=== PATIENT | female | born 1965 | race Caucasian/White ===

== ENCOUNTER 2017-11-26 14:01 | Emergency (ER) | payer OTHER ==
[~2017-11-26] VITALS: Ht 167.6 cm; Wt 69.8 kg
[2017-11-26] MEDS ORDERED: KEPPRA500 MG PO (14:48)
[2017-11-26] MEDS ORDERED: LEVO-T150 MCG PO (14:48)
[2017-11-26] MEDS ORDERED: UNITHROID150 MCG (14:48)
[2017-11-26] MEDS ORDERED: ZYPREXA5 MG PO (14:49)
[2017-11-26] MEDS ORDERED: TEGRETOL XR400 MG PO (14:49)
[2017-11-26] MEDS ORDERED: MINIPRESS1 MG PO (14:49)
[2017-11-26] MEDS ORDERED: GEODON20 MG PO (14:50)
[2017-11-26] MEDS ORDERED: CYCLOBENZAPRINE5 MG PO (16:48)
[2017-11-26] MEDS ORDERED: IBUPROFEN600 MG PO (16:48)
== END 2017-11-26 16:58 | disposition home or self-care (01) ==
LOC: ED 14:01
DX: R10.12 Left upper quadrant pain (principal); Z88.2 Allergy status to sulfonamides; Z88.8 Allergy status to other drugs, medicaments and biological substances; Z79.899 Other long term (current) drug therapy
CPT/HCPCS: 74177; 80053; 81001; 83690; 85025; 85610; 96361; 96374; 96375; 99284; J1885; J2270; J2405; J7030; Q9967

== ENCOUNTER 2017-11-29 14:46 | Emergency (ER) | payer OTHER ==
[~2017-11-29] VITALS: Ht 167.6 cm; Wt 71.7 kg
[~2017-11-29 14:46] MED LIST: CYCLOBENZAPRINE5 MG PO; GEODON20 MG PO; IBUPROFEN600 MG PO; KEPPRA500 MG PO; LEVO-T150 MCG PO; MINIPRESS1 MG PO; TEGRETOL XR400 MG PO; UNITHROID150 MCG; ZYPREXA5 MG PO
[2017-11-29] MEDS ORDERED: FLAGYL500 MG PO (18:48)
[2017-11-29] MEDS ORDERED: ZOFRAN ODT4 MG PO (18:49)
== END 2017-11-29 19:15 | disposition home or self-care (01) ==
LOC: ED 14:46
DX: R10.9 Unspecified abdominal pain (principal); F15.10 Other stimulant abuse, uncomplicated; G40.909 Epilepsy, unspecified, not intractable, without status epilepticus; F17.200 Nicotine dependence, unspecified, uncomplicated; Z88.2 Allergy status to sulfonamides; Z88.8 Allergy status to other drugs, medicaments and biological substances; Z79.899 Other long term (current) drug therapy
CPT/HCPCS: 74177; 80053; 81001; 83605; 85025; 96360; 96361; 96372; 99284; J1885; J7030; Q9967

== ENCOUNTER 2017-12-03 16:33 | Emergency (ER) | payer OTHER ==
[~2017-12-03] VITALS: Ht 167.6 cm; Wt 71.7 kg
[~2017-12-03 16:33] MED LIST changes: +FLAGYL500 MG PO; +ZOFRAN ODT4 MG PO
[2017-12-03] MEDS ORDERED: AMBIEN10 MG PO (16:52)
[2017-12-03] MEDS ORDERED: KETOROLAC TROME10 MG PO (18:36)
== END 2017-12-03 18:58 | disposition home or self-care (01) ==
LOC: ED 16:33
DX: K29.70 Gastritis, unspecified, without bleeding (principal); Z76.5 Malingerer [conscious simulation]; G40.909 Epilepsy, unspecified, not intractable, without status epilepticus; F17.200 Nicotine dependence, unspecified, uncomplicated; Z88.2 Allergy status to sulfonamides; Z88.8 Allergy status to other drugs, medicaments and biological substances; Z79.899 Other long term (current) drug therapy
CPT/HCPCS: 73610; 74018; 80053; 81001; 85025; 96374; 96375; 99283; J2405; J7030

== ENCOUNTER 2017-12-04 13:19 | Emergency (ER) | payer OTHER ==
[~2017-12-04] VITALS: Ht 167.6 cm; Wt 71.7 kg
[~2017-12-04 13:19] MED LIST changes: +AMBIEN10 MG PO; +KETOROLAC TROME10 MG PO
== END 2017-12-04 16:24 | disposition home or self-care (01) ==
LOC: ED 13:19
DX: R45.851 Suicidal ideations (principal); Z00.8 Encounter for other general examination; F17.200 Nicotine dependence, unspecified, uncomplicated; Z88.2 Allergy status to sulfonamides; Z88.8 Allergy status to other drugs, medicaments and biological substances; Z79.899 Other long term (current) drug therapy
CPT/HCPCS: 36415; 80053; 80176; 81001; 84443; 84703; 85025; 99283; G0480

== ENCOUNTER 2017-12-12 11:29 | Emergency (ER) | payer OTHER ==
[~2017-12-12] VITALS: Ht 167.6 cm; Wt 83.5 kg
[2017-12-12] MEDS ORDERED: OMEPRAZOLE20 MG PO (13:30)
[2017-12-12] MEDS ORDERED: MIRALAX17 GM PO (13:30)
[2017-12-12] MEDS ORDERED: CITRATE OF MAG296 ML PO (13:30)
== END 2017-12-12 13:45 | disposition home or self-care (01) ==
LOC: ED 11:29
DX: K59.00 Constipation, unspecified (principal); R51 Headache; G40.909 Epilepsy, unspecified, not intractable, without status epilepticus; F17.200 Nicotine dependence, unspecified, uncomplicated; Z88.2 Allergy status to sulfonamides; Z88.8 Allergy status to other drugs, medicaments and biological substances; Z79.899 Other long term (current) drug therapy
CPT/HCPCS: 36415; 74022; 80053; 83690; 85025; 96372; 99283; J1885

== ENCOUNTER 2018-03-01 15:01 | Emergency (ER) | payer OTHER ==
[~2018-03-01] VITALS: Ht 167.6 cm; Wt 83.5 kg
[~2018-03-01 15:01] MED LIST changes: +CITRATE OF MAG296 ML PO; +MIRALAX17 GM PO; +OMEPRAZOLE20 MG PO
--- OUTSIDE RECORDS SUMMARY | 2018-03-01 15:06 | XMS ---
PreManage Notification: DAVE NOVAK Security Professor Of Criminal Justice Events No recent Security Events currently on file CRITERIA MET - 6 ED Visits in 6 Months CARE PROVIDERS There are no care providers on record at this time. Barber has no Care Guidelines for this patient. Care History Medical/Surgical 12/04/2017 [facility] - Patient was previously at the [facility] and then transitioned to a [facility]. - Any contact with the patient is prohibited and [facility] stated they have case management involved with patient through the [facility]. - USE EXTREME CAUTION IN GIVING NARCOTICS TO THIS PATIENT. - Avoid Discharge Narcotic prescriptions if at all possible. Please use clinical judgement. This patient has had 5 or more Emergency Department visits in the last 12 months.\T\nbsp; Patient requires education on the scope and purpose of the ED as an acute care provider not a Primary Care Provider and should not be utilized for chronic conditions.\T\nbsp; If patient returns to ED please contact Community Health WorkerDisha at [phone]. These are guidelines and the provider should exercise clinical judgment when providing care. E.D. VISIT COUNT (12 MO.) 6 [facility] TOTAL 6 NOTE: Visits indicate total known visits. ED/UCC VISIT TRACKING (12 MO.) 03/01/2018 15:02 [facility] [place] TYPE: Emergency COMPLAINT: - HEAD PAIN 12/12/2017 11:30 [facility] [place] TYPE: Emergency COMPLAINT: - ABD PAIN/HEADACHE DIAGNOSES: - Nicotine dependence, unspecified, uncomplicated - Constipation, unspecified - Epilepsy, unspecified, not intractable, without status epilepticus - Headache - Other care home (current) drug therapy - Allergy status to other drugs, medicaments and biological substances status - Allergy status to sulfonamides status 12/04/2017 13:19 [facility] [place] TYPE: Emergency COMPLAINT: - MEDICAL CLEARANCE DIAGNOSES: - Allergy status to other drugs, medicaments and biological substances status - Other care home (current) drug therapy - Allergy status to sulfonamides status - Encounter for other general examination - Suicidal ideations - Nicotine dependence, unspecified, uncomplicated - Suicidal ideations 12/03/2017 16:34 [facility] [place] TYPE: Emergency COMPLAINT: - LEFT ANKLE PAIN, INJURY/STOMACH PAIN DIAGNOSES: - Gastritis, unspecified, without bleeding - Left upper quadrant pain - Epilepsy, unspecified, not intractable, without status epilepticus - Allergy status to sulfonamides status - Other care home (current) drug therapy - Malingerer [conscious simulation] - Allergy status to other drugs, medicaments and biological substances status - Nicotine dependence, unspecified, uncomplicated 11/29/2017 14:46 [facility] [place] TYPE: Emergency COMPLAINT: - ABD PAIN3 DIAGNOSES: - Allergy status to other drugs, medicaments and biological substances status - Nicotine dependence, unspecified, uncomplicated - Other stimulant abuse, uncomplicated - Unspecified abdominal pain - Other care home (current) drug therapy - Allergy status to sulfonamides status - Epilepsy, unspecified, not intractable, without status epilepticus 11/26/2017 14:02 [facility] [place] TYPE: Emergency COMPLAINT: - LOWER BACK PAIN DIAGNOSES: - Allergy status to other drugs, medicaments and biological substances status - Left upper quadrant pain - Allergy status to sulfonamides status - Other care home (current) drug therapy INPATIENT VISIT TRACKING (12 MO.) No inpatient visits to display in this time frame [id number]
[2018-03-01] MEDS ORDERED: FLUOXETINE HCL40 MG PO (16:37)
[2018-03-01] MEDS ORDERED: GABAPENTIN300 MG PO (16:39)
[2018-03-01] MEDS ORDERED: CLONAZEPAM1 MG PO (16:40)
[2018-03-01] MEDS ORDERED: AMITRIPTYLINE H50 MG PO (16:41)
--- NOTE | 2018-03-01 21:01 | EKG ---
[facility] [address] [facility] [address] [place] [address] Signed Normal sinus rhythm T wave abnormality, consider lateral ischemia Abnormal ECG No previous ECGs available Confirmed by BLAS PALAFOX MD ([id number]) on 03/01/2018 9:01:15 PM Electronically Signed By: BLAS PALAFOX MD 03/01/182100 PATIENT NAME: MARLENI ORDONEZDAVE L Electrocardiogram DATE OF : 65 PHYSICIAN: BLAS PALAFOX MD REPORT #: [id number] REPORT IS CONFIDENTIAL AND NOT TO BE RELEASED WITHOUT AUTHORIZATION
== END 2018-03-01 20:26 | disposition home or self-care (01) ==
LOC: ED 15:01
PROC: 0T9B70Z Drainage of Bladder with Drainage Device, Via Natural or Artificial Opening (ICD-10-PCS; principal; 2018-03-01)
DX: F15.10 Other stimulant abuse, uncomplicated (principal); R41.0 Disorientation, unspecified; G40.909 Epilepsy, unspecified, not intractable, without status epilepticus; F17.200 Nicotine dependence, unspecified, uncomplicated; Z88.2 Allergy status to sulfonamides; Z88.8 Allergy status to other drugs, medicaments and biological substances; Z79.899 Other long term (current) drug therapy
CPT/HCPCS: 51701; 70450; 80053; 81001; 84484; 85025; 87077; 87088; 87186; 93005; 93010; 99285; G0480

== ENCOUNTER 2018-04-13 14:22 | Emergency (ER) | payer OTHER ==
[~2018-04-13] VITALS: Ht 167.6 cm; Wt 83.5 kg
[~2018-04-13 14:22] MED LIST changes: +AMITRIPTYLINE H50 MG PO; +CLONAZEPAM1 MG PO; +FLUOXETINE HCL40 MG PO; +GABAPENTIN300 MG PO
[2018-04-13] MEDS ORDERED: CARBAMAZEPINE200 MG PO (18:27)
[2018-04-13] MEDS ORDERED: KEFLEX500 MG PO (18:33)
[2018-04-13] MEDS ORDERED: PERCOCET 5-3251 EACH PO (18:39)
[2018-04-13] MEDS ORDERED: PROPRANOLOL HCL10 MG PO (18:40)
[2018-04-13] MEDS ORDERED: VENTOLIN HFA18 GM INH (18:41)
[2018-04-13] MEDS ORDERED: PRAZOSIN HCL2 MG PO (18:41)
[2018-04-13] MEDS ORDERED: FLOVENT DISKU250 MCG INH (18:44)
--- OUTSIDE RECORDS SUMMARY | 2018-04-14 07:01 | XMS ---
PreManage Notification: DAVE NOVAK Security Job Service Consultant Events No recent Security Events currently on file CRITERIA MET - 6 ED Visits in 6 Months CARE PROVIDERS ELISE VERNON Physician Director Of Public Safety 03/02/2018-Current PHONE: [phone] Barber has no Care Guidelines for this patient. Care History Medical/Surgical 12/04/2017 [facility] - PATIENT IS NOW WORKING WITH [facility] CASE MANAGEMENT- PLEASE CONTACT TYLER AT [facility] [phone]. - PATIENT IS CURRENTLY RESIDING IN [place] AT THE [facility] UNTIL HOUSING CAN BE FOUND FOR HER. - Patient was previously at the [facility] and then transitioned to a [facility]. - Any contact with the patient is prohibited and [facility] stated they have case management involved with patient through the jail. - USE EXTREME CAUTION IN GIVING NARCOTICS [...] ED please contact Community Health WorkerDisha at [phone]. These are guidelines and the provider should exercise clinical judgment when providing care. E.D. VISIT COUNT (12 MO.) [address] [facility] TOTAL 7 NOTE: Visits indicate total known visits. ED/UCC VISIT TRACKING (12 MO.) 04/13/2018 14:24 [facility] [place] TYPE: Emergency COMPLAINT: - MEDICAL CLEARANCE 03/01/2018 15:02 [facility] [place] TYPE: Emergency COMPLAINT: - HEAD PAIN DIAGNOSES: - Allergy status to sulfonamides status - Allergy status to other drugs, medicaments and biological substances status - Nicotine dependence, unspecified, uncomplicated - Disorientation, unspecified - Major depressive disorder, single episode, unspecified - Other terminal operator (current) drug therapy - Other stimulant abuse, uncomplicated - Epilepsy, unspecified, not intractable, without status epilepticus 12/12/2017 11:30 [facility] [place] TYPE: Emergency COMPLAINT: - ABD PAIN/HEADACHE DIAGNOSES: - Nicotine dependence, unspecified, uncomplicated - Constipation, unspecified - Epilepsy, unspecified, not intractable, without status epilepticus - Headache - Other skilled nursing (current) drug therapy - Allergy status to other drugs, medicaments and biological substances status - Allergy status to sulfonamides status 12/04/2017 13:19 [facility] [place] TYPE: Emergency COMPLAINT: - MEDICAL CLEARANCE DIAGNOSES: - Allergy status to other drugs, medicaments and biological substances status - Other terminal operator (current) drug therapy - Allergy status to sulfonamides status - Encounter for other general examination - Suicidal ideations - Nicotine dependence, unspecified, uncomplicated - Suicidal ideations 12/03/2017 16:[facility] COMPLAINT: - LEFT ANKLE PAIN, INJURY/STOMACH PAIN DIAGNOSES: - Gastritis, unspecified, without bleeding - Left upper quadrant pain - Epilepsy, unspecified, not intractable, without status epilepticus - Allergy status to sulfonamides status - Other terminal operator (current) drug therapy - Malingerer [conscious simulation] - Allergy status to other drugs, medicaments and biological substances status - Nicotine dependence, unspecified, uncomplicated 11/29/2017 14:46 [facility] [place] [facility] COMPLAINT: - ABD PAIN3 DIAGNOSES: - Allergy status to other drugs, medicaments and biological substances status - Nicotine dependence, unspecified, uncomplicated - Other stimulant abuse, uncomplicated - Unspecified abdominal pain - Other skilled nursing (current) drug therapy - Allergy status to sulfonamides status - Epilepsy, unspecified, not intractable, without status epilepticus 11/26/2017 14:02 [facility] [place] [facility]: [facility] COMPLAINT: - LOWER BACK PAIN DIAGNOSES: - Allergy status to other drugs, medicaments and biological substances status - Left upper quadrant pain - Allergy status to sulfonamides status - Other skilled nursing (current) drug therapy INPATIENT VISIT TRACKING (12 MO.) No inpatient visits to display in this time frame [id number]
== END 2018-04-14 15:12 ==
LOC: ED 14:22
DX: F32.9 Major depressive disorder, single episode, unspecified (principal); F15.10 Other stimulant abuse, uncomplicated; R45.851 Suicidal ideations; F17.200 Nicotine dependence, unspecified, uncomplicated; Z88.2 Allergy status to sulfonamides; Z88.8 Allergy status to other drugs, medicaments and biological substances; Z79.899 Other long term (current) drug therapy
CPT/HCPCS: 36415; 70450; 80053; 81001; 85025; 99285; G0480

== ENCOUNTER 2018-08-01 11:10 | Emergency (ER) | payer OTHER ==
[~2018-08-01] VITALS: Ht 167.6 cm; Wt 83.5 kg
[~2018-08-01 11:10] MED LIST changes: +CARBAMAZEPINE200 MG PO; +FLOVENT DISKU250 MCG INH; +KEFLEX500 MG PO; +PERCOCET 5-3251 EACH PO; +PRAZOSIN HCL2 MG PO; +PROPRANOLOL HCL10 MG PO; +VENTOLIN HFA18 GM INH
--- OUTSIDE RECORDS SUMMARY | 2018-08-01 11:12 | XMS ---
PreManage Notification: DAVE NOVAK Security Construction Trades Contractor Events No recent Security Events currently on file CRITERIA MET - [facility] - Has Care Guidelines CARE PROVIDERS ELISE VERNON Physician Networking Engineer 03/02/2018-Current PHONE: [phone] Barber has no Care Guidelines for this patient. Care History Medical/Surgical 12/04/2017 [facility] - PATIENT IS NOW WORKING WITH [facility] CASE MANAGEMENT- PLEASE CONTACT TYLER AT [facility] [phone]. - PATIENT IS CURRENTLY RESIDING IN [place] AT THE [facility] UNTIL HOUSING CAN BE FOUND FOR HER. - [facility]. - Any contact with the patient is prohibited and [facility] the [facility]. - USE EXTREME CAUTION IN GIVING NARCOTICS [...] ED please contact Community Health WorkerDisha at [phone]. These are guidelines and the provider should exercise clinical judgment when providing care. E.D. VISIT COUNT (12 MO.) [address] [facility] TOTAL 8 NOTE: Visits indicate total known visits. ED/UCC VISIT TRACKING (12 MO.) 08/01/2018 11:10 [facility] [place] TYPE: Emergency COMPLAINT: - DIZZINESS/WEAKNESS 04/13/2018 14:24 [facility] [place] TYPE: Emergency COMPLAINT: - MEDICAL CLEARANCE DIAGNOSES: - Nicotine dependence, unspecified, uncomplicated - Allergy status to other drugs, medicaments and biological substances status - Allergy status to sulfonamides status - Other stimulant abuse, uncomplicated - Major depressive disorder, single episode, unspecified - Suicidal ideations - Other truck terminal manager (current) drug therapy 03/01/2018 15:02 [facility] [place] TYPE: Emergency COMPLAINT: - HEAD PAIN DIAGNOSES: - Allergy status to sulfonamides status - Allergy status to other drugs, medicaments and biological substances status - Nicotine dependence, unspecified, uncomplicated - Disorientation, unspecified - Major depressive disorder, single episode, unspecified - Other truck terminal manager (current) drug therapy - Other stimulant abuse, uncomplicated - Epilepsy, unspecified, not intractable, without status epilepticus 12/12/2017 11:30 [facility] [place] TYPE: Emergency COMPLAINT: - ABD PAIN/HEADACHE DIAGNOSES: - Nicotine dependence, unspecified, uncomplicated - Constipation, unspecified - Epilepsy, unspecified, not intractable, without status epilepticus - Headache - Other truck terminal manager (current) drug therapy - Allergy status to other drugs, medicaments and biological substances status - Allergy status to sulfonamides status 12/04/2017 13:[address] [facility] [place] [facility] [place] TYPE: Emergency COMPLAINT: - MEDICAL CLEARANCE DIAGNOSES: - Allergy status to other drugs, medicaments and biological substances status - Other fpc (current) drug therapy - Allergy status to sulfonamides status - Encounter for other general examination - Suicidal ideations - Nicotine dependence, unspecified, uncomplicated - Suicidal ideations 12/03/2017 16:34 [facility] [place] TYPE: Emergency COMPLAINT: - LEFT ANKLE PAIN, INJURY/STOMACH PAIN DIAGNOSES: - Gastritis, unspecified, without bleeding - Left upper quadrant pain - Epilepsy, unspecified, not intractable, without status epilepticus - Allergy status to sulfonamides status - Other fpc (current) drug therapy - Malingerer [conscious simulation] - Allergy status to other drugs, medicaments and biological substances status - Nicotine dependence, unspecified, uncomplicated 11/29/2017 14:[address] [facility] [place] [facility] [place] TYPE: Emergency COMPLAINT: - ABD PAIN3 DIAGNOSES: - Allergy status to other drugs, medicaments and biological substances status - Nicotine dependence, unspecified, uncomplicated - Other stimulant abuse, uncomplicated - Unspecified abdominal pain - Other fpc (current) drug therapy - Allergy status to sulfonamides status - Epilepsy, unspecified, not intractable, without status epilepticus 11/26/2017 14:02 [facility] [place] TYPE: Emergency COMPLAINT: - LOWER BACK PAIN DIAGNOSES: - Allergy status to other drugs, medicaments and biological substances status - Left upper quadrant pain - Allergy status to sulfonamides status - Other truck terminal manager (current) drug therapy INPATIENT VISIT TRACKING (12 MO.) No inpatient visits to display in this time frame [id number]
== END 2018-08-01 12:03 | disposition home or self-care (01) ==
LOC: ED 11:10
DX: M54.5 Low back pain (principal); G89.29 Other chronic pain; F31.9 Bipolar disorder, unspecified; E03.9 Hypothyroidism, unspecified; F17.200 Nicotine dependence, unspecified, uncomplicated; Z88.2 Allergy status to sulfonamides; Z88.8 Allergy status to other drugs, medicaments and biological substances; Z79.899 Other long term (current) drug therapy
CPT/HCPCS: 36415; 80053; 85025; 99283

== ENCOUNTER 2018-08-13 18:10 | Emergency (ER) | payer OTHER ==
[~2018-08-13] VITALS: Ht 167.6 cm; Wt 83.5 kg
--- OUTSIDE RECORDS SUMMARY | 2018-08-13 18:12 | XMS ---
PreManage Notification: DAVE NOVAK Security Oncology Pharmacist Events No recent Security Events currently on file CRITERIA MET - [facility] - Has Care Guidelines - [facility] - 2 Visits in 30 Days CARE PROVIDERS ELISE VERNON Physician Enterprise Application Analyst 03/02/2018-Current PHONE: [phone] Barber has no Care Guidelines for this patient. Care History Medical/Surgical 12/04/2017 [facility] - PATIENT IS NOW WORKING WITH [facility] CASE MANAGEMENT- PLEASE CONTACT TYLER AT [facility] [phone]. - PATIENT IS CURRENTLY RESIDING IN [place] AT THE [facility] UNTIL HOUSING CAN BE FOUND FOR HER. - Patient was previously at the [facility] and then transitioned to a [facility]. - Any contact with the patient is prohibited and [facility] stated they have case [facility]. - USE EXTREME CAUTION IN GIVING NARCOTICS [...] ED please contact Community Health WorkerDisha at [phone]. These are guidelines and the provider should exercise clinical judgment when providing care. Dante VISIT COUNT (12 MO.) 9 [facility] TOTAL 9 NOTE: Visits indicate total known visits. ED/UCC VISIT TRACKING (12 MO.) 08/13/2018 18:11 [facility] [place] TYPE: Emergency COMPLAINT: - FALL 08/01/2018 11:[address] [facility] [place] TYPE: Emergency COMPLAINT: - DIZZINESS/WEAKNESS DIAGNOSES: - Hypothyroidism, unspecified - Other chronic pain - Other remedial masseur (current) drug therapy - Allergy status to sulfonamides status - Bipolar disorder, unspecified - Allergy status to other drugs, medicaments and biological substances status - Low back pain - Nicotine dependence, unspecified, uncomplicated 04/13/2018 14:24 [facility] [place] [facility] COMPLAINT: - MEDICAL CLEARANCE DIAGNOSES: - Nicotine dependence, unspecified, uncomplicated - Allergy status to other drugs, medicaments and biological substances status - Allergy status to sulfonamides status - Other stimulant abuse, uncomplicated - Major depressive disorder, single episode, unspecified - Suicidal ideations - Other penitentiary (current) drug therapy 03/01/2018 15:02 [facility] [place] [facility] COMPLAINT: - HEAD PAIN DIAGNOSES: - Allergy status to sulfonamides status - Allergy status to other drugs, medicaments and biological substances status - Nicotine dependence, unspecified, uncomplicated - Disorientation, unspecified - Major depressive disorder, single episode, unspecified - Other penitentiary (current) drug therapy - Other stimulant abuse, uncomplicated - Epilepsy, unspecified, not intractable, without status epilepticus 12/12/2017 11:30 [facility] [place] TYPE: Emergency COMPLAINT: - ABD PAIN/HEADACHE DIAGNOSES: - Nicotine dependence, unspecified, uncomplicated - Constipation, unspecified - Epilepsy, unspecified, not intractable, without status epilepticus - Headache - Other penitentiary (current) drug therapy - Allergy status to other drugs, medicaments and biological substances status - Allergy status to sulfonamides status 12/04/2017 13:19 [facility] [place] TYPE: Emergency COMPLAINT: - MEDICAL CLEARANCE DIAGNOSES: - Allergy status to other drugs, medicaments and biological substances status - Other penitentiary (current) drug therapy - Allergy status to [...] Allergy status to sulfonamides status - Other penitentiary (current) drug therapy - Malingerer [conscious simulation] - Allergy status to other drugs, medicaments and biological substances status - Nicotine dependence, unspecified, uncomplicated 11/29/2017 14:46 [facility] [place] TYPE: Emergency COMPLAINT: - ABD PAIN3 DIAGNOSES: - Allergy status to other drugs, medicaments and biological substances status - Nicotine dependence, unspecified, uncomplicated - Other stimulant abuse, uncomplicated - Unspecified abdominal pain - Other remedial masseur (current) drug therapy - Allergy status to sulfonamides status - Epilepsy, unspecified, not intractable, without status epilepticus 11/26/2017 14:02 [facility] [place] TYPE: Emergency COMPLAINT: - LOWER BACK PAIN DIAGNOSES: - Allergy status to other drugs, medicaments and biological substances status - Left upper quadrant pain - Allergy status to sulfonamides status - Other remedial masseur (current) drug therapy INPATIENT VISIT TRACKING (12 MO.) No inpatient visits to display in this time frame [id number]
[2018-08-13] MEDS ORDERED: MACROBID 100 M100 MG PO (21:15)
--- NOTE | 2018-08-15 12:17 | EKG ---
[facility] [address] [facility] [place] [address] Signed Normal sinus rhythm ST \T\ T wave abnormality, consider lateral ischemia Abnormal ECG When compared with ECG of 01-MAR-2018 16:56, QT has lengthened Confirmed by MIKEY FLORENTINO DO ([id number]) on 08/15/2018 12:17:09 PM Electronically Signed By: MIKEY FLORENTINO DO 08/15/18 1217 PATIENT NAME: DAVE NOVAK Electrocardiogram DATE OF : 65 PHYSICIAN: MIKEY FLORENTINO DO REPORT #: [id number] REPORT IS CONFIDENTIAL AND NOT TO BE RELEASED WITHOUT AUTHORIZATION
== END 2018-08-13 21:48 | disposition home or self-care (01) ==
LOC: ED 18:10
DX: R56.9 Unspecified convulsions (principal); S09.90XA Unspecified injury of head, initial encounter; N39.0 Urinary tract infection, site not specified; G89.29 Other chronic pain; E03.9 Hypothyroidism, unspecified; F31.9 Bipolar disorder, unspecified; F43.10 Post-traumatic stress disorder, unspecified; F41.9 Anxiety disorder, unspecified; F20.9 Schizophrenia, unspecified; F17.200 Nicotine dependence, unspecified, uncomplicated; Z90.710 Acquired absence of both cervix and uterus; Z88.2 Allergy status to sulfonamides; Z88.8 Allergy status to other drugs, medicaments and biological substances; Z79.899 Other long term (current) drug therapy; W22.8XXA Striking against or struck by other objects, initial encounter
CPT/HCPCS: 70450; 80053; 80156; 81001; 82542; 83690; 85025; 93005; 93010; 96361; 96374; 96375; 99284-25; G0480; J1885; J2405; J7030